=== PATIENT | male | born 1965 | race Caucasian/White ===

== ENCOUNTER 2025-03-18 05:58 | Inpatient (IN) ==
[2025-03-18] MEDS: 0.9 % SODIUM CHLORIDE 1,000 ML IV ONE ×2 (06:25→07:21)
[2025-03-18] MEDS: INSULIN REGULAR, HUMAN 1 UNIT/0.01 ML UNIT IV ONE ×2 (06:25→08:19)
[2025-03-18] MEDS: ASPIRIN 81 MG TAB.CHEW CHEWED ONE (06:26)
[2025-03-18] MEDS: PANTOPRAZOLE 40 MG VIAL IV ONE (06:27)
[2025-03-18] MEDS: ONDANSETRON 4 MG/2 ML VIAL IV ONE (06:27)
[2025-03-18 06:36] LABS: Basophils # (Auto) 0.01 K/mcL (0.00-0.30); Basophils % (Auto) 0.1 % (0.0-2.0); Eosinophils # (Auto) 0 K/mcL (0.00-0.70); Eosinophils % (Auto) 0 % (0.0-7.0); Hematocrit 53.7 % (40.1-51.0); Hemoglobin 17.8 g/dL (13.7-17.5); Lymphocytes # (Auto) 1.59 K/mcL (1.50-4.80); Lymphocytes % (Auto) 9.2 % (15.5-49.0); Mean Corpuscular HGB Conc 33.1 g/dL (31.0-36.0); Monocytes # (Auto) 0.81 K/mcL (0.10-0.90); Monocytes % (Auto) 4.7 % (1.0-12.0); Neutrophils % (Auto) 85.6 % (38.0-78.0); Platelet Count 310 K/mcL (140-440); RBC 5.66 M/mcL (4.63-6.08); WBC 17.2 K/mcL (4.5-11.0)
[2025-03-18 06:50] LABS: ALT/SGPT 24 U/L (<40); AST/SGOT 15 U/L (<40); Albumin 4.6 gm/dL (3.2-5.2); Albumin/Globulin Ratio 1.1 (1.0-2.3); Alkaline Phosphatase 83 U/L (39-117); Anion Gap 37.0 (8.0-16.0); Bilirubin,Total 0.7 mg/dL (0.1-1.0); Blood Urea Nitrogen 36 mg/dL (6-20); Calcium 10.5 mg/dL (8.6-10.4); Carbon Dioxide 13 mmol/L (22-30); Chloride 92 mmol/L (96-108); Globulin 4.1 gm/dL (2.2-3.7); Glucose 480 mg/dL (70-105); Potassium 4.2 mmol/L (3.3-5.1); Sodium 142 mmol/L (133-145)
[2025-03-18 06:56] LABS: Bacteria,Urine 0 /hpf (0); Bilirubin,Urine Negative (Negative); Color,Urine LT. YELLOW; Glucose,Urine (UA) >=1000 mg/dL (Negative); Ketones,Urine >=80 mg/dL (Negative); Leukocyte Esterase,Urine NEGATIVE /uL (Negative); Mucus,Urine Few /hpf; PH,Urine 6.0 (5.0-9.0); Protein,Urine 100 mg/dL (Negative); Specific Gravity,Urine >= 1.030 (1.000-1.035); Urobilinogen,Urine 0.2 mg/dL
[2025-03-18 07:06] LABS: Beta Hydroxybutyrate 8.38 mmol/L (<0.27)
[2025-03-18] MEDS: INSULIN REGULAR, HUMAN 50 UNIT in 0.9 % SODIUM CHLORIDE 99.5 ML IV SCH (08:22)
[2025-03-18] MEDS: LACTATED RINGERS 1,000 ML IV ONE (08:28)
[2025-03-18] MEDS: INSULIN GLARGINE, HUMAN 1 UNIT/0.01 ML SQ ONE ×3 (08:50→20:58)
[2025-03-18 09:54] LABS: Anion Gap 25.0 (8.0-16.0); Blood Urea Nitrogen 35 mg/dL (6-20); Calcium 9.3 mg/dL (8.6-10.4); Carbon Dioxide 16 mmol/L (22-30); Chloride 102 mmol/L (96-108); Glucose 368 mg/dL (70-105); Phosphorous 3.0 mg/dL (2.5-4.5); Potassium 4.3 mmol/L (3.3-5.1); Sodium 143 mmol/L (133-145)
[2025-03-18] MEDS ORDERED: POTASSIUM CHLORIDE 20 MEQ in 0.45 % SODIUM CHLORIDE 1,000 ML IV PRN (10:00)
[2025-03-18] MEDS ORDERED: DEXTROSE 31 GM ORAL.SUSP PO PRN (10:53)
[2025-03-18] MEDS ORDERED: POLYETHYLENE GLYCOL 3350 17 GM PACKET PO PRN (10:53)
[2025-03-18] MEDS ORDERED: SENNOSIDES 1 TABLET PO PRN (10:53)
[2025-03-18] MEDS ORDERED: DEXTROSE 50% 50 ML VIAL IV PRN (10:53)
[2025-03-18] MEDS ORDERED: METOCLOPRAMIDE 10 MG/2 ML VIAL IV PRN (10:53)
[2025-03-18] MEDS ORDERED: MAG HYDROX/AL HYDROX/SIMETH 30 ML ORAL.SUSP PO PRN (10:53)
[2025-03-18] MEDS: INSULIN LISPRO 1 UNIT/0.01 ML UNIT SQ SCH (11:35)
[2025-03-18] MEDS: DEXTROSE 5%-1/2NS W/20MEQ KCL 1,000 ML IV PRN (11:41)
[2025-03-18 11:51] LABS: Anion Gap 19.0 (8.0-16.0); Blood Urea Nitrogen 33 mg/dL (6-20); Calcium 9.4 mg/dL (8.6-10.4); Carbon Dioxide 23 mmol/L (22-30); Chloride 102 mmol/L (96-108); Glucose 237 mg/dL (70-105); Potassium 3.7 mmol/L (3.3-5.1); Sodium 144 mmol/L (133-145)
[2025-03-18] MEDS ORDERED: POTASSIUM CHLORIDE 40 MEQ in DEXTROSE 5%-1/2NS 1,000 ML IV PRN (12:45)
[2025-03-18] MEDS: POTASSIUM CHLORIDE 20 MEQ TABLET PO ONE ×2 (12:57→17:36)
[2025-03-18] MEDS: 0.9 % SODIUM CHLORIDE 10 ML SYRINGE IV SCH (13:06)
[2025-03-18] MEDS: POTASSIUM CHLORIDE 40 MEQ in DEXTROSE 5%-1/2NS 1,000 ML IV PRN (13:12)
[2025-03-18 16:01] LABS: POC Blood Urea Nitrogen 31.0 (6-20); POC CO2 23.0 (22-30); POC Calcium, Ionized 1.18 (1.16-1.32); POC Glucose, Random 141.0 (70-105)
[2025-03-18] MEDS: DEXTROSE 50% 50 ML SYRINGE IV PRN (16:12)
[2025-03-18 16:24] LABS: Anion Gap 13.0 (8.0-16.0); Blood Urea Nitrogen 30 mg/dL (6-20); Calcium 9.3 mg/dL (8.6-10.4); Carbon Dioxide 25 mmol/L (22-30); Chloride 105 mmol/L (96-108); Glucose 142 mg/dL (70-105); Potassium 3.8 mmol/L (3.3-5.1); Sodium 143 mmol/L (133-145)
[2025-03-18] MEDS: ACETAMINOPHEN 325 MG TABLET PO PRN (19:00)
[2025-03-18 19:41] LABS: Anion Gap 13.0 (8.0-16.0); Blood Urea Nitrogen 27 mg/dL (6-20); Calcium 9.1 mg/dL (8.6-10.4); Carbon Dioxide 22 mmol/L (22-30); Chloride 105 mmol/L (96-108); Glucose 237 mg/dL (70-105); Potassium 4.2 mmol/L (3.3-5.1); Sodium 140 mmol/L (133-145)
[2025-03-18] MEDS: MELATONIN 3 MG TABLET PO PRN (20:58)
[2025-03-18] MEDS: LACTATED RINGERS 1,000 ML IV SCH (23:08)
[2025-03-19 00:09] LABS: Anion Gap 8.0 (8.0-16.0); Blood Urea Nitrogen 27 mg/dL (6-20); Calcium 9.3 mg/dL (8.6-10.4); Carbon Dioxide 24 mmol/L (22-30); Chloride 108 mmol/L (96-108); Glucose 160 mg/dL (70-105); Potassium 4.4 mmol/L (3.3-5.1); Sodium 140 mmol/L (133-145)
[2025-03-19 04:26] LABS: Anion Gap 10.0 (8.0-16.0); Blood Urea Nitrogen 24 mg/dL (6-20); Calcium 9.1 mg/dL (8.6-10.4); Carbon Dioxide 21 mmol/L (22-30); Chloride 108 mmol/L (96-108); Glucose 204 mg/dL (70-105); Potassium 4.6 mmol/L (3.3-5.1); Sodium 139 mmol/L (133-145)
[2025-03-19 05:38] LABS: Basophils # (Auto) 0.02 K/mcL (0.00-0.30); Basophils % (Auto) 0.1 % (0.0-2.0); Eosinophils # (Auto) 0.01 K/mcL (0.00-0.70); Eosinophils % (Auto) 0.1 % (0.0-7.0); Hematocrit 43.8 % (40.1-51.0); Hemoglobin 14.2 g/dL (13.7-17.5); Lymphocytes # (Auto) 2.21 K/mcL (1.50-4.80); Lymphocytes % (Auto) 14.4 % (15.5-49.0); Mean Corpuscular HGB Conc 32.4 g/dL (31.0-36.0); Monocytes # (Auto) 1.20 K/mcL (0.10-0.90); Monocytes % (Auto) 7.8 % (1.0-12.0); Neutrophils % (Auto) 77.5 % (38.0-78.0); Platelet Count 222 K/mcL (140-440); RBC 4.52 M/mcL (4.63-6.08); WBC 15.4 K/mcL (4.5-11.0)
[2025-03-19 05:56] LABS: ALT/SGPT 16 U/L (<40); AST/SGOT 15 U/L (<40); Albumin 3.4 gm/dL (3.2-5.2); Albumin/Globulin Ratio 1.2 (1.0-2.3); Alkaline Phosphatase 55 U/L (39-117); Anion Gap 11.0 (8.0-16.0); Bilirubin,Direct 0.2 mg/dL (<0.3); Bilirubin,Total 0.6 mg/dL (0.1-1.0); Blood Urea Nitrogen 23 mg/dL (6-20); Calcium 9.1 mg/dL (8.6-10.4); Carbon Dioxide 20 mmol/L (22-30); Chloride 107 mmol/L (96-108); Globulin 2.9 gm/dL (2.2-3.7); Glucose 230 mg/dL (70-105); Phosphorous 1.9 mg/dL (2.5-4.5); Potassium 4.8 mmol/L (3.3-5.1); Sodium 138 mmol/L (133-145); Triglycerides 156 mg/dL (<150); Uric Acid 5.3 mg/dL (2.5-8.0)
[2025-03-19 06:00] LABS: Beta Hydroxybutyrate 1.26 mmol/L (<0.27)
[2025-03-19] MEDS: ONDANSETRON 4 MG/2 ML VIAL IV PRN (07:26)
[2025-03-19 07:50] LABS: Anion Gap 11.0 (8.0-16.0); Blood Urea Nitrogen 23 mg/dL (6-20); Calcium 9.1 mg/dL (8.6-10.4); Carbon Dioxide 22 mmol/L (22-30); Chloride 105 mmol/L (96-108); Glucose 261 mg/dL (70-105); Potassium 4.7 mmol/L (3.3-5.1); Sodium 138 mmol/L (133-145)
[2025-03-19] MEDS ORDERED: INSULIN GLARGINE, HUMAN 1 UNIT/0.01 ML SQ SCH (09:00)
[2025-03-19] MEDS: SODIUM PHOSPHATE 30 MMOL in DEXTROSE 5% IN WATER 500 ML IV ONE (09:16)
[2025-03-19] MEDS: NEUTRA PHOS 1 PACKET PO ONE (09:17)
[2025-03-19] MEDS: ENOXAPARIN 40 MG/0.4 ML SYRINGE SQ SCH (09:23)
[2025-03-19 11:45] LABS: Anion Gap 13.0 (8.0-16.0); Blood Urea Nitrogen 23 mg/dL (6-20); Calcium 9.1 mg/dL (8.6-10.4); Carbon Dioxide 21 mmol/L (22-30); Chloride 101 mmol/L (96-108); Glucose 275 mg/dL (70-105); Potassium 4.7 mmol/L (3.3-5.1); Sodium 135 mmol/L (133-145)
[2025-03-19] MEDS: INSULIN LISPRO 1 UNIT/0.01 ML UNIT SQ SCH ×2 (12:25→16:57)
[2025-03-19 15:44] LABS: Anion Gap 11.0 (8.0-16.0); Blood Urea Nitrogen 22 mg/dL (6-20); Calcium 9.0 mg/dL (8.6-10.4); Carbon Dioxide 25 mmol/L (22-30); Chloride 102 mmol/L (96-108); Glucose 322 mg/dL (70-105); Potassium 4.0 mmol/L (3.3-5.1); Sodium 138 mmol/L (133-145)
[2025-03-19] MEDS: GABAPENTIN 300 MG CAPSULE PO SCH (21:11)
[2025-03-19] MEDS: ATORVASTATIN 40 MG TABLET PO SCH (21:11)
[2025-03-19] MEDS: CYCLOBENZAPRINE 10 MG TABLET PO ONE (21:11)
[2025-03-19] MEDS: SERTRALINE 100 MG TABLET PO SCH (21:11)
[2025-03-19] MEDS: LOSARTAN 50 MG TABLET PO SCH (21:11)
[2025-03-19] MEDS: INSULIN GLARGINE, HUMAN 1 UNIT/0.01 ML SQ SCH (21:19)
[2025-03-20 05:43] LABS: ALT/SGPT 21 U/L (<40); AST/SGOT 16 U/L (<40); Albumin 3.5 gm/dL (3.2-5.2); Albumin/Globulin Ratio 1.2 (1.0-2.3); Alkaline Phosphatase 55 U/L (39-117); Anion Gap 11.0 (8.0-16.0); Basophils # (Auto) 0.03 K/mcL (0.00-0.30); Basophils % (Auto) 0.3 % (0.0-2.0); Bilirubin,Direct 0.3 mg/dL (<0.3); Bilirubin,Total 0.8 mg/dL (0.1-1.0); Blood Urea Nitrogen 17 mg/dL (6-20); Calcium 9.2 mg/dL (8.6-10.4); Carbon Dioxide 27 mmol/L (22-30); Chloride 103 mmol/L (96-108); Eosinophils # (Auto) 0.07 K/mcL (0.00-0.70); Eosinophils % (Auto) 0.7 % (0.0-7.0); Globulin 2.9 gm/dL (2.2-3.7); Glucose 170 mg/dL (70-105); Hematocrit 43.9 % (40.1-51.0); Hemoglobin 15.1 g/dL (13.7-17.5); Lymphocytes # (Auto) 2.82 K/mcL (1.50-4.80); Lymphocytes % (Auto) 29.4 % (15.5-49.0); Mean Corpuscular HGB Conc 34.4 g/dL (31.0-36.0); Monocytes # (Auto) 0.94 K/mcL (0.10-0.90); Monocytes % (Auto) 9.8 % (1.0-12.0); Neutrophils % (Auto) 59.7 % (38.0-78.0); Phosphorous 3.9 mg/dL (2.5-4.5); Platelet Count 222 K/mcL (140-440); Potassium 3.9 mmol/L (3.3-5.1); RBC 4.73 M/mcL (4.63-6.08); Sodium 141 mmol/L (133-145); Triglycerides 171 mg/dL (<150); Uric Acid 3.5 mg/dL (2.5-8.0); WBC 9.6 K/mcL (4.5-11.0)
[2025-03-20] MEDS: INSULIN LISPRO 1 UNIT/0.01 ML UNIT SQ SCH (07:34)
[2025-03-20] MEDS: CARVEDILOL 12.5 MG TABLET PO SCH (08:15)
[2025-03-20] MEDS: ASPIRIN 81 MG TAB.CHEW PO SCH (08:15)
[2025-03-20 12:48] VITALS: TEMP 97.9; O2SAT 98
== END 2025-03-20 12:55 | disposition home or self-care (01) | DRG 639 ==
LOC: ED 05:58 → ICU 10:45
PROVIDERS: ADMIT Student in an Organized Health Care Education/Training Program; ATTEND Student in an Organized Health Care Education/Training Program